=== PATIENT | male | born 1955 | race Caucasian/White ===

== ENCOUNTER → 2016-08-31 | Outpatient (CLI) | payer OTHER ==
[~2016-08-31] MED LIST: ISOVUE-370 76% 100ML VIAL (Q9967) As Ordered ONE
--- NOTE | 2016-08-31 08:49 | REP ---
Clinical: Left lower lobe mass by chest x-ray. Technique: Axial contrast enhanced images from the thoracic inlet to the upper abdomen using 100 ml Isovue 370 intravenous contrast material with coronal and sagittal re-formations. Comparison: None Findings: There is a 2.5 cm heterogeneously enhancing, mildly spiculated mass lesion in the left lower lobe which is most consistent with neoplasm. No further pulmonary parenchymal nodule or mass lesion is identified. No pleural effusion/reaction. No adenopathy. Mediastinum demonstrates atherosclerotic changes to the thoracic aorta and coronary arteries without cardiomegaly or pericardial effusion. The tracheobronchial tree is patent. The surrounding musculoskeletal structures demonstrate prior sternotomy without focal osseous abnormality. Limited upper abdomen demonstrates normal bilateral adrenal glands. Impression: 2.5 cm heterogeneously enhancing mass lesion in the left lower lobe compatible with neoplasm. No associated adenopathy or satellite lesions are identified. Signed by Ji Christian MD 08/31/2016 08:40 A
== END ==
LOC: M RAD 07:35
PROVIDERS: ATTEND Thoracic Surgery (Cardiothoracic Vascular Surgery)
DX: R91.1 Solitary pulmonary nodule (principal)
CPT/HCPCS: 71260; Q9967